=== PATIENT | female | born 1960 | race Caucasian/White ===

== ENCOUNTER → 2018-11-15 | Outpatient (CLI) | payer BC ==
--- NOTE | 2018-11-18 09:41 | MM ---
Reason for exam: screening (asymptomatic). Last mammogram was performed 4 years and 3 months ago. History: Patient is postmenopausal and history of other cancer. Benign excisional biopsy of the left breast, 1989. Physical Findings: A clinical breast exam by your physician is recommended on an annual basis and results should be correlated with mammographic findings. MG 3D Screening Mammo W/Cad Bilateral CC and MLO view(s) were taken. Prior study comparison: August 20, 2014, bilateral MG screening mammo w CAD. The breast tissue is extremely dense which could obscure a lesion on mammography. There are stable left breast findings of a posterior depth lower inner quadrant mass, calcifications and central posterior depth asymmetry. No suspicious abnormality. Post surgical change on the left. No significant changes when compared with prior studies. ASSESSMENT: Benign, BI-RAD 2 RECOMMENDATION: Routine screening mammogram of both breasts in 1 year.
== END | disposition home or self-care (01) ==
LOC: RADMAMWWP 09:14
PROVIDERS: ATTEND Family Medicine
DX: Z12.31 Encounter for screening mammogram for malignant neoplasm of breast (principal)
CPT/HCPCS: 77063; 77067

== ENCOUNTER → 2021-07-12 | Outpatient (CLI) | payer BC ==
--- NOTE | 2021-07-14 12:24 | MM ---
Reason for exam: screening (asymptomatic). Last mammogram was performed 2 years and 8 months ago. History: Patient is postmenopausal and history of other cancer. Benign excisional biopsy of the left breast, 1989. Physical Findings: A clinical breast exam by your physician is recommended on an annual basis and results should be correlated with mammographic findings. MG 3D Screening Mammo W/Cad Bilateral CC and MLO view(s) were taken. Prior study comparison: November 15, 2018, bilateral MG 3d screening mammo w/cad. August 20, 2014, bilateral MG screening mammo w CAD. The breast tissue is heterogeneously dense. This may lower the sensitivity of mammography. Stable benign calcifications. There is no discrete abnormality. No significant changes when compared with prior studies. ASSESSMENT: Benign, BI-RAD 2 RECOMMENDATION: Routine screening mammogram of both breasts in 1 year.
== END | disposition home or self-care (01) ==
LOC: RADMAMWWP 07:35
PROVIDERS: ATTEND Family Medicine
DX: Z12.31 Encounter for screening mammogram for malignant neoplasm of breast (principal)
CPT/HCPCS: 77063; 77067

== ENCOUNTER → 2023-05-30 | Outpatient (CLI) | payer BC ==
--- NOTE | 2023-05-30 20:28 | BD ---
EXAMINATION TYPE: Axial Bone Density DATE OF EXAM: 05/30/2023 CLINICAL HISTORY: 62 years old Female. ICD-10 CODE: Z78.0 ASYMPTOMATIC MENOPAUSAL STA Height: 62 Weight: 109 FRAX RISK QUESTIONS: History of Fracture in Adulthood: no Secondary Osteoporosis: no RISK FACTORS HISTORY OF: Family History of Osteoporosis: no Active: yes Diet low in dairy products/other sources of calcium: no Postmenopausal woman: yes Lost more than 2 inches in height since high school: no MEDICATIONS: Additional Medications: no EXAM MEASUREMENTS: Bone mineral densitometry was performed using the [employer] System. Bone mineral density as measured about the Lumbar spine is: ----- L1-L4(G/cm2): 0.819 T Score Values are as follows: ----- L1: -3.4 ----- L2: -3.2 ----- L3: -3.0 ----- L4: -2.8 ----- L1-L4: -3.0 Z Score Values are as follows: ----- L1: -1.3 ----- L2: -1.1 ----- L3: -0.9 ----- L4: -0.7 ----- L1-L4: -0.9 Bone mineral density baseline Bone mineral density about the R hip (g/cm2): 0.892 Bone mineral density about the L hip (g/cm2): 0.886 T Score values are as follows: -----R Neck: -2.0 -----L Neck: -1.9 -----R Total: -0.9 -----L Total: -1.0 Z Score values are as follows: -----R Neck: -0.3 -----L Neck: -0.1 -----R Total: 0.6 -----L Total: 0.6 Bone mineral density baseline FRAX%s: The graph provided illustrates a 9.5% chance for a major osteoporotic fx and a 1.6% chance fo r the hips probability for fx in 10 years time. IMPRESSION: Osteoporosis (T Score less than -2.5). There is increased fracture risk and therapy is usually indicated based on age. Re-Screen 1-2 years. NOTE: T-SCORE=SD OF THE YOUNG ADULT MEAN.
--- NOTE | 2023-06-03 15:57 | MM ---
Reason for Exam: Screening (asymptomatic). Last mammogram was performed 1 year(s) and 11 month(s) ago. Patient History: Menarche at age 12. First Full-Term at age 27. Postmenopausal. Patient has history of breast feeding. 1989, Benign Excisional Biopsy on the left side. Risk Values: Crystal 5 year model risk: 1.9%. NCI Lifetime model risk: 7.7%. Prior Study Comparison: 08/20/2014 Bilateral Screening Mammogram, [facility]. 11/15/2018 Bilateral Screening Mammogram, [facility]. 07/12/2021 Bilateral Screening Mammogram, [facility]. Tissue Density: The breast tissue is extremely dense which could obscure a lesion on mammography. Findings: Analyzed By CAD. The pattern is symmetrical and stable. No significant interval changes. Some scattered small round calcifications are present. No suspicious groups of microcalcifications, spiculated or lobular masses, architectural distortion or other secondary signs of malignancy are mammographically apparent. Overall Assessment: Benign, BI-RAD 2 Management: Screening Mammogram of both breasts in 1 year. A negative mammogram report should not preclude additional follow up of suspicious palpable abnormalities. Patient should continue monthly self breast exam. A clinical breast exam by your physician is recommended on an annual basis and results should be correlated with mammographic findings. Electronically signed and approved by: Naga Fisher D.O. Radiologis
== END | disposition home or self-care (01) ==
LOC: RADBDWWP 15:53
PROVIDERS: ATTEND Family Medicine
DX: Z12.31 Encounter for screening mammogram for malignant neoplasm of breast (principal); M81.0 Age-related osteoporosis without current pathological fracture; M85.89 Other specified disorders of bone density and structure, multiple sites; Z78.0 Asymptomatic menopausal state
CPT/HCPCS: 77063; 77067; 77080

== ENCOUNTER 2023-12-25 11:10 | Day surgery (SDC) | payer BC ==
[2023-12-25] MEDS ORDERED: LACTATED RINGERS 1,000 ML BAG ONE (11:30)
[2023-12-25] MEDS ORDERED: PROPOFOL 10 MG/ML 20 ML VIAL IV ONE (12:07)
[2023-12-25] MEDS ORDERED: LIDOCAINE 1% INJ 10MG/ML (20 ML MDV) ONE (12:07)
--- NOTE | 2024-01-18 06:58 | P.PCN ---
Date of Procedure: 12/25/23 Procedure(s) Performed: This is an addendum to the procedure that was performed on 12/25/2023. Procedure performed colonoscopy Procedure: The Olympus colonoscopy was inserted the rectum and gradually advanced all the way into the cecum.
== END 2023-12-25 13:20 | disposition home or self-care (01) ==
LOC: ORWHC2ENDO 11:10
PROVIDERS: ATTEND Internal Medicine Gastroenterology
DX: Z86.010 Personal history of colon polyps (principal)
CPT/HCPCS: 45378